=== PATIENT | male | born 1985 | race Caucasian/White ===

== ENCOUNTER 2017-06-05 14:53 | Emergency (ER) | payer MEDICAID ==
[2017-06-05 15:04] VITALS: BP 115/75; PULSE 93; RESP 19; TEMP 98.1; O2SAT 92
--- NOTE | 2017-06-05 15:39 | EDPHY ---
H & P Time Seen by Provider: 06/05/17 15:28 HPI/ROS: CHIEF COMPLAINT: "My tooth hurts" HISTORY OF PRESENT ILLNESS: 32-year-old homeless male complaining of odontalgia after self performed dental extraction a few weeks ago of tooth 21. No fever no chills. No nausea or vomiting. No floor of mouth pain. No trismus or drooling. No dental follow-up. PHYSICAL EXAM (Prior to examination, patient consented to physical exam, hands were washed and my usual and customary physical exam procedures followed) 1) GENERAL: Well-developed, well-nourished, alert and oriented. Appears to be in no acute distress. 2) HEAD: Normocephalic 3) HEENT: sclera anicteric . No trismus no drooling. Facial features are symmetrical. Edentulous at tooth #21 with associated tenderness to percussion dislocation with no evidence of apical abscess. No tonsillar enlargement or exudate. Nasolabial folds are symmetrical and present. Floor of mouth soft, no induration, no evidence of Dontrell's angina. Submandibular and submental spaces are soft no induration. 4) LUNGS: Breathing comfortably. Smoking Status: Current every day smoker Constitutional: Initial Vital Signs Temperature (C) 36.7 C 06/05/17 15:01 Heart Rate 93 06/05/17 15:01 Respiratory Rate 19 06/05/17 15:01 Blood Pressure 115/75 06/05/17 15:01 O2 Sat (%) 92 06/05/17 15:01 O2 Delivery Mode Room Air Allergies/Adverse Reactions: No Known Allergies Allergy (Unverified 07/29/12 17:13) Home Medications: Medication Instructions Recorded Miscellaneous Medical Supply [NO 07/29/12 HOME MEDS] Permethrin 5% [Elimite 5%] 60 gr TOP DAILY #0 gm 03/20/14 Permethrin 5% [Elimite 5%] 60 lashell TP ONCE #1 cream 04/11/14 Permethrin 5% [Elimite 5%] 60 gm TP DAILY #1 cream 06/23/14 Permethrin [Lice Treatment] 59 ml TP DAILY #1 shampoo 06/23/14 Amoxicillin Trihydrate 500 mg PO Q8 7 Days cap 06/05/17 [Amoxicillin 500mg cap] Ibuprofen [Motrin (*)] 800 mg PO Q6 #15 tab 06/05/17 ED Images - Head Mouth: 1 - Location of pain MDM/Departure - MDM ED Course/Re-evaluation: 3:35 p.m.: Left voicemail with the [facility] emergency number without patient identifying information as it is not clear whether this is a HIPAA compliant voicemail. I recommend this patient follow up at [facility]. Dental nerve block administered by myself achieving localized anesthesia and pain relief. No evidence of Dontrell's angina. No indication for imaging or admission. Airway is patent. He has been given [facility] follow-up information. Care of patient under supervision of secondary supervising physician Dr Gregory. - Depart Disposition: Home, Routine, Self-Care Clinical Impression: Odontalgia Condition: Good Instructions: Toothache (ED) Additional Instructions: Return to the ER immediately if you cannot swallow, have drooling, fevers, neck stiffness, cannot open your jaw, or any other symptoms that concern you. Prescriptions: Amoxicillin Trihydrate [Amoxicillin 500mg cap] 500 mg PO Q8 7 Days cap Ibuprofen [Motrin (*)] 800 mg PO Q6 #15 tab Referrals: [facility] [Outside] - As per Instructions
== END 2017-06-05 15:55 | disposition home or self-care (01) ==
PROC: 3E0X3BZ Introduction of Anesthetic Agent into Cranial Nerves, Percutaneous Approach (ICD-10-PCS; principal; 2017-06-05)
DX: K08.89 Other specified disorders of teeth and supporting structures (principal); F17.200 Nicotine dependence, unspecified, uncomplicated

== ENCOUNTER 2017-06-07 16:21 | Emergency (ER) | payer MEDICAID ==
[2017-06-07 16:27] VITALS: BP 139/84; PULSE 90; RESP 16; TEMP 98.2; O2SAT 96
--- NOTE | 2017-06-07 17:13 | EDPHY ---
H & P Time Seen by Provider: 06/07/17 16:44 HPI/ROS: HPI Dental pain. 32-year-old male on foot. He is homeless. He was seen in our emergency department on June 05 of this year after he reports he pulled out tooth 21. He did this secondary to the tooth hurting him and complaining that it was [facility]. He was placed on amoxicillin as well as high-dose ibuprofen. [facility] was contacted by Dr. Reggie oropeza during that visit. He has not followed up with dental aide. It is not clear if he has been taking his amoxicillin as well. He complains of pain and swelling to the socket area of tooth 21. ROS: Constitutional: No fever, no chills. No weakness. Eyes: No discharge. No changes in vision. ENT: No sore throat. No nasal congestion or rhinorrhea. As above. Respiratory: No cough. No shortness of breath. Musculoskeletal: No neck pain. Skin: No rashes. Neurological: No headache. No focal weakness or altered sensation. Past medical history: Scabies. As above. Social history: Smoker. Homeless. Denies alcohol. Physical Exam: General Appearance: Alert, he does not appear in distress. This patient is responding to questions appropriately and in full sentences. This patient appears well-hydrated and well-nourished. Eyes: Pupils equal and round no pallor or injection. No lid edema, erythema or injection. ENT, Mouth: Mucous membranes are moist. The pharyngeal tissues are unremarkable. No edema or swelling. No asymmetry suggestive of abscess. No erythema or exudates. No elevation of the tongue. The submental tissues are soft. No indication of Dontrell's angina. Edentulous socket 21. No evidence of periapical abscess. No evidence of serina gingival abscess. No symmetry involving the nasal folds or the soft tissues of the chin mandible and lower lip. Neurological: Motor sensory function is grossly intact. Cranial nerves are normal. Gait is normal. Skin: Warm and dry, no rashes. Musculoskeletal: Neck is supple and nontender. No submandibular, submental, cervical lymphadenopathy. Extremities are symmetrical. All joints range without pain or impingement. Psychiatric: No agitation. No depression. Database: EKG: Imaging: Procedures: Emergency department course: Vital signs reviewed and are normal. The patient does not present with a drainable abscess. He does not have evidence of Dontrell's angina, facial cellulitis, facial abscess or other serious bacterial infectious process. [facility] was called. We left a message on their answering service machine. We did not receive a call back during this patient's visit. Plan will be to have this patient follow up with dental aide in their clinic tomorrow. He was given our contact information. If I do receive a call back from their service. I will notify them of this patient's complaint and that I referred him to their clinic for evaluation tomorrow which is Thursday. The patient has been taking acetaminophen for pain. I told him to stop taking this and to use ibuprofen instead. He has filled his prescription for amoxicillin and is taking that as prescribed. He has been instructed to continue taking his amoxicillin he understands the follow-up plan with dental aide at their clinic and the necessity for this. He was discharged in good condition. Differential Diagnosis: The differential diagnosis on this patient includes but is not limited to odontalgia. Facial abscess, Dontrell's angina, apical abscess, serina gingival abscess unlikely. This represents a partial list of diagnoses considered. These considerations are based on history, physical exam, past history, reassessment and diagnostic testing. Smoking Status: Current every day smoker Constitutional: Initial Vital Signs Temperature (C) 36.8 C 06/07/17 16:25 Heart Rate 90 06/07/17 16:25 Respiratory Rate 16 06/07/17 16:25 Blood Pressure 139/84 H 06/07/17 16:25 O2 Sat (%) 96 06/07/17 16:25 O2 Delivery Mode Room Air Allergies/Adverse Reactions: No Known Allergies Allergy (Unverified 07/29/12 17:13) Home Medications: Medication Instructions Recorded Amoxicillin 06/07/17 Departure - Departure Disposition: Home, Routine, Self-Care Clinical Impression: Odontalgia Condition: Good Instructions: Toothache (ED) Additional Instructions: Read and follow provided instructions. Follow-up with dental aide in their clinic tomorrow. I provided you with their contact information and address. You can go is a walk inpatient tomorrow from 9 :00 a.m. To 5:00 p.m.. Take amoxicillin as prescribed through entire course of treatment. Ibuprofen dosin mg every 6 hours with meals for the next 3 days only. Take only as needed for pain. Return to the emergency department for worsening pain, fever, facial swelling, neck pain or other serious concerns. Referrals: [facility] [Outside] - As per Instructions
== END 2017-06-07 17:18 | disposition home or self-care (01) ==
DX: K08.89 Other specified disorders of teeth and supporting structures (principal); F17.200 Nicotine dependence, unspecified, uncomplicated

== ENCOUNTER 2017-08-17 13:39 | Emergency (ER) | payer MEDICAID ==
[2017-08-17 13:43] VITALS: BP 125/83
--- NOTE | 2017-08-17 14:03 | EDPHY ---
H & P Stated Complaint: R ear pain Time Seen by Provider: 08/17/17 13:55 HPI/ROS: HPI: This is a 32-year-old male who presents with Chief Complaint: Right ear pain Location: Right greater than left ear Quality: Pain Duration: 2 days Signs and Symptoms: no fever, no nausea, no vomiting, no photophobia, no noise sensitivity, no neck stiffness, + ear pain, no tinnitus, no nasal congestion, no sinus pressure, no weakness, no radiation, no aura Timing: Acute Severity: Moderate Context: Patient reports he has no primary care provider health and is uninsured, uses his fingers to clean out his ear wax. Presents with complaints of right ear mild constant pain deep in his canal x 2 days. Patient reports that he has decreased hearing out of the right but normal hearing out of the left ear. Denies any fever/difficulty swallowing/radiation of pain/ear discharge. Modifying Factors: None Comment: ROS: see HPI Constitutional: No fever, no chills, no weight loss Eyes: No blurred vision Respiratory: No shortness of breath, no cough Cardiovascular: No chest pain, no palpitations Gastrointestinal: No nausea, no vomiting, no diarrhea, no hematemesis, no blood in stool Genitourinary: No dysuria, no blood in urine Extremities: No myalgias, no edema Neurologic: No weakness, no numbness Skin: No rashes, no petechiae Hematologic: No bruising, no bleeding MEDICAL/SURGICAL/SOCIAL HISTORY: Medical history: History of scabies Surgical history: Denies Social history: Current every day smoker. Family history noncontributory. CONSTITUTIONAL: Extremely well-appearing adult male, dreads, awake and alert, no obvious distress HEENT: Atraumatic and normocephalic, PERRL, EOMI. Nares patent; no rhinorrhea; no nasal mucosal edema. EAC occluded with black hardened wax. Tympanic membranes clear. Oropharynx clear, no exudate and moist pink mucosa. Airway patent. No lymphadenopathy. No meningismus. Cardiovascular: Normal S1/S2, mild tachycardia, regular rhythm, without murmur rub or gallop. PULMONARY/CHEST: Symmetrical and nontender. Clear to auscultation bilaterally. Good air movement. No accessory muscle usage. ABDOMEN: Soft, nondistended, nontender, no rebound, no guarding, no peritoneal signs, no masses or organomegaly. No CVAT. EXTREMITIES: 2/2 pulses, strength 5/5, no deformities, no clubbing, no cyanosis or edema. NEUROLOGICAL: no focal neuro deficits. GCS 15. SKIN: Warm and dry, no erythema. no rash. Good capillary refill. Source: Patient Exam Limitations: No limitations - Personal History Current Tetanus/Diphtheria Vaccine: Unsure Current Tetanus Diphtheria and Acellular Pertussis (TDAP): Unsure - Medical/Surgical History Hx Asthma: No Hx Chronic Respiratory Disease: No Hx Diabetes: No Hx Cardiac Disease: No Hx Renal Disease: No Hx Cirrhosis: No Hx Alcoholism: No Hx HIV/AIDS: No Hx Splenectomy or Spleen Trauma: No Other PMH: scabies - Social History Smoking Status: Current every day smoker Constitutional: Initial Vital Signs Temperature (C) 37.2 C 08/17/17 13:42 Heart Rate 104 H 08/17/17 13:42 Respiratory Rate 16 08/17/17 13:42 Blood Pressure 125/83 H 08/17/17 13:42 O2 Sat (%) 95 08/17/17 13:42 O2 Delivery Mode Room Air Allergies/Adverse Reactions: haloperidol [From Haldol] Allergy (Verified 08/17/17 13:42) Medical Decision Making ED Course/Re-evaluation: Bilateral cerumen impaction noted. Nurse offered to perform ear irrigation with complete return of hearing ability. No signs of otitis media/otitis externa/TM rupture This patient was seen under the supervision of my secondary supervising physician. I evaluated care for this patient independently. Discussed this patient with Dr. Quesada who did not see the patient. Differential Diagnosis: Differential diagnosis includes but is not limited to TM rupture, otitis media, otitis externa, vestibular neuritis. Departure - Departure Disposition: Home, Routine, Self-Care Clinical Impression: Bilateral impacted cerumen, Hearing loss of right ear due to cerumen impaction Condition: Good Instructions: Cerumen Impaction (ED) Additional Instructions: Do not use Q-Tips or your fingers to remove earwax. Use [id number] Debrox to soften ear wax. Referrals: [facility],. [Clinic] - Follow Up Only If Needed
[2017-08-17] MEDS ORDERED: HYDROGEN PEROXIDE 236 ML BOTTLE TP ONE (14:05)
== END 2017-08-17 15:01 | disposition home or self-care (01) ==
PROC: 3E1B78Z Irrigation of Ear using Irrigating Substance, Via Natural or Artificial Opening (ICD-10-PCS; principal; 2017-08-17)
DX: H61.23 Impacted cerumen, bilateral (principal); F17.200 Nicotine dependence, unspecified, uncomplicated

== ENCOUNTER 2017-08-27 22:58 | Emergency (ER) | payer MEDICAID ==
[2017-08-27] MEDS ORDERED: PERMETHRIN 5% 60 GM CREAM TP ONE (23:45)
--- NOTE | 2017-08-27 23:45 | EDPHY ---
General - History Smoking Status: Current every day smoker Time Seen by Provider: 08/27/17 23:36 Narrative: CHIEF COMPLAINT: rash, "picked up rat poison box and i'm breaking out." HISTORY OF PRESENT ILLNESS: Patient presents with complaints of rash to the lower abdomen. It has been present for 2 days. He thinks it may be related to picking up a box of rat poison. He did not ingest this. He has no systemic complaints. The rash is located on the lower abdomen, suprapubic skin. Minimally pruritic. He feels that it is an irritant or possibly infected rash. He feels that is not the same as when he has had scabies in the past. He has no itching, rash elsewhere. No difficulty breathing or swelling. No swelling anywhere. No chest pain or shortness of breath. REVIEW OF SYSTEMS: Ten systems reviewed and are negative unless otherwise noted in the HPI PCP: Occasionally seen at [facility] SPECIALISTS: None PAST MEDICAL HISTORY: Denies any ongoing medical diagnoses. PAST SURGICAL HISTORY: No recent surgeries SOCIAL HISTORY: Currently homeless and sleeping on the sidewalk FAMILY HISTORY: Noncontributory EXAMINATION General Appearance: Alert, no distress. Unkempt. Well-developed well- nourished. Head: normocephalic, atraumatic Eyes: Pupils equal and round, no conjunctival pallor or injection ENT: Airway is widely patent. The uvula is midline. There is no swelling of the lips or tongue. No trismus. No drooling. Respiratory: No retractions or distress Cardiovascular: Regular rate Gastrointestinal: Abdomen is soft and nontender. Skin changes as below Back: non-tender, no bony abnormalities Neurological: A&O, nonfocal, normal gait Skin: Unclean skin is grossly intact. Warm and dry. There is a dermatitis to the lower abdomen/suprapubic skin. It is erythematous and without any petechiae or purpura. I do not appreciate any nits or burrows. No cellulitis, abscess or fluctuance. Extremities: Nontender, no pedal edema Psychiatric: Mood and affect normal DIFFERENTIAL DIAGNOSES: Including but not limited to contact dermatitis, cellulitis, scabies dermatitis MDM: 11:50 p.m. Acute dermatitis of the lower abdomen and suprapubic skin. Difficult to tell if this is an early presentation of scabies or a contact dermatitis. There is no systemic rash. His airway is widely patent. There is no erythema or edema of the lips, tongue face. I do not appreciate any systemic skin changes. I will treat him with oral prednisone for the possibility of contact dermatitis. I will treat him with topical permethrin for the possibility of scabies. We will provide these medications to him by the medication assistance program as he is currently homeless. I do feel he is stable for discharge home and will follow [facility]. SUPERVISION: This patient was independently evaluated without direct involvement of or examination by the attending physician. (Melecio Turner) PHYSICIAN DOCUMENTATION: The patient was evaluated and managed by the [facility] Dispatcher. My co- signature indicates that I have reviewed this chart and I agree with the findings and plan of care as documented. I am the secondary supervising physician. (Lucita Smith) - Objective Vital Signs: Initial Vital Signs Temperature (C) 37 C 08/27/17 23:01 Heart Rate 91 08/27/17 23:01 Respiratory Rate 18 08/27/17 23:01 Blood Pressure 109/69 08/27/17 23:01 O2 Sat (%) 94 08/27/17 23:01 O2 Delivery Mode Room Air Allergies/Adverse Reactions: haloperidol [From Haldol] Allergy (Verified 08/17/17 13:42) Home Medications: Medication Instructions Recorded predniSONE [Deltasone] 60 mg PO DAILY #15 tablet 08/27/17 Medications Given: Discontinued Medications Permethrin (Elimite 5%) 1 lashell TP EDNOW ONE Stop: 08/27/17 23:46 Last Admin: 08/28/17 00:59 Dose: 1 lashell Departure - Departure Disposition: Home, Routine, Self-Care Clinical Impression: Contact dermatitis Qualifiers: Contact dermatitis type: unspecified Contact dermatitis trigger: unspecified trigger Qualified Code(s): L25.9 - Unspecified contact dermatitis, unspecified cause Condition: Good Instructions: Contact Dermatitis (ED), Scabies (ED) Additional Instructions: 1. Prednisone 60 mg once daily for 5 days. This medication will be provided to you by the medication assistance program. Here 1st dose will be taking here. 2. Contact [facility] for outpatient definitive care 3. Permethrin topical cream as provided and demonstrated Referrals: NONE *PRIMARY CARE P,. [Primary Care Provider] - As per Instructions [facility],. [Clinic] - As per Instructions Prescriptions: predniSONE [Deltasone] 60 mg PO DAILY #15 tablet
[2017-08-28] MEDS ORDERED: predniSONE 20 MG TAB PO SCH
[2017-08-28 01:13] VITALS: BP 112/73
== END 2017-08-28 01:14 | disposition home or self-care (01) ==
DX: L25.9 Unspecified contact dermatitis, unspecified cause (principal); F17.200 Nicotine dependence, unspecified, uncomplicated
CPT/HCPCS: J7512

== ENCOUNTER 2017-09-07 20:43 | Emergency (ER) | payer MEDICAID ==
[~2017-09-07 20:43] MED LIST: PERMETHRIN 5% 60 GM CREAM TP SCH
[2017-09-07 20:49] VITALS: BP 111/76
--- NOTE | 2017-09-07 21:40 | EDPHY ---
General Time Seen by Provider: 09/07/17 21:36 Narrative: CHIEF COMPLAINT: "scabies" HISTORY OF PRESENT ILLNESS: Patient presents with complaints of "I've got scabies." I evaluated the patient here for the same complaint on the 24 of August. He was prescribed permethrin cream and a burst of steroid. He says he completed them and felt better until a couple days ago. He says "I think anyone more treatment of permethrin." He describes a very pruritic rash to the lower abdomen. He feels as though it is exactly the same as his previous scabies. He has no chest pain, cough or feeling of systemic illness. No other associated complaints or modifying factors. MEDICAL/SURGICAL/SOCIAL HISTORY: Recurrent scabies. Patient is currently homeless and living in residential at times. REVIEW OF SYSTEMS: Ten systems reviewed and are negative unless otherwise noted in the HPI EXAMINATION General Appearance: Alert, no distress Head: normocephalic, atraumatic Cardiovascular: Pulses normal throughout. Brisk cap refill Neurological: A&O, sensory symmetric, strength symmetric Skin: Warm and dry. Erythematous rash to the lower abdomen that is blanchable. There do appear to be burrows consistent with scabies. Extremities: Nontender, no pedal edema DIFFERENTIAL DIAGNOSES: Including but not limited to scabies, acute dermatitis, contact dermatitis MDM: 9:35 p.m. Acute dermatitis that does appear to be consistent with scabies. No petechiae or purpura. I have ordered a dose of permethrin for him, and we will provide this by the medication assistance program. His vital signs within normal limits and he does not have any systemic rash. I do feel he is stable for discharge home with topical treatment and he is comfortable this plan. SUPERVISION: This patient was independently evaluated without direct involvement of or examination by the attending physician. ED Precautions: Worsening pain. Erythema, edema, cyanosis, pallor, paresthesia or anesthesia. - History Smoking Status: Current every day smoker - Objective Vital Signs: Initial Vital Signs Temperature (C) 98.2 F 09/07/17 20:45 Heart Rate 95 09/07/17 20:45 Respiratory Rate 16 09/07/17 20:45 Blood Pressure 111/76 09/07/17 20:45 O2 Sat (%) 94 09/07/17 20:45 O2 Delivery Mode Room Air Allergies/Adverse Reactions: haloperidol [From Haldol] Allergy (Verified 09/07/17 20:46) Home Medications: Medication Instructions Recorded Permethrin 5% [Elimite 5%] 1 lashell TP AD #1 tube 09/07/17 Departure - Departure Disposition: Home, Routine, Self-Care Clinical Impression: Scabies infestation, Acute dermatitis Condition: Good Instructions: Permethrin (On the skin), Scabies (ED) Additional Instructions: 1. Permethrin cream topical as discussed 2. Contact [facility] to be seen later this week Referrals: [facility],. [Clinic] - As per Instructions Prescriptions: Permethrin 5% [Elimite 5%] 1 lashell TP AD #1 tube
== END 2017-09-07 22:20 | disposition home or self-care (01) ==
DX: B86 Scabies (principal); L30.9 Dermatitis, unspecified; F17.200 Nicotine dependence, unspecified, uncomplicated